=== PATIENT | male | born 1995 | race Caucasian/White ===

== ENCOUNTER → 2024-02-07 | Emergency (ER) | payer SELFPAY ==
[~2024-02-07] MED LIST: DIPHENHYDRAMINE 50 MG/ML VIAL ONE; FAMOTIDINE 20 MG/2 ML VIAL IV ONE; KETOROLAC 30 MG/ML INJ ONE; METHYLPREDNISOLONE 125 MG INJ ONE; PROMETHAZINE 25 MG TABLET ONE; TRAMADOL HCL 50 MG TAB ONE
--- NOTE | 2024-02-07 06:10 | EDPHYS ---
Physician Documentation [facility] Name: Wayne Lawson Age: 28 yrs Sex: Male : 1995 Arrival Date: 02/07/2024 Time: 05:41 Bed 6 Private MD: ED Physician Jose Goff HPI: 02/06 06:01 This 28 yrs old Male presents to ER via Ambulatory with complaints of sp4 Toothache, Lips Swelling. 06:01 28-year-old male presents with upper lip swelling after application of Orajel yesterday sp4 evening. Patient applied Orajel to the front upper gingiva, and this has caused upper lip swelling just inferior to the nose the area over the philtrum. No difficulty breathing . . Historical: - Allergies: 05:51 Orajel 3X Toothache-Gum; km8 - Home Meds: 05:51 None [Active]; km8 - PMHx: 05:51 None; km8 - PSHx: 05:51 None; km8 - Immunization history:: Client reports having NOT received the Covid vaccine. Flu vaccine is not up to date. - Social history:: Smoking status: Reported history of juuling and/or vaping. Patient/guardian denies using alcohol, street drugs. - Family history:: not pertinent. ROS: 06:01 Constitutional: Negative for fever, chills, and weight loss, Eyes: Negative for injury, sp4 pain, redness, and discharge, ENT: Positive upper lip swelling positive upper incisor dental pain Neck: Negative for injury, pain, and swelling, Cardiovascular: Negative for chest pain, palpitations, and edema, 06:01 All other systems are negative, Exam: 06:01 Constitutional: This is a well developed, well nourished patient who is awake, alert, sp4 and in no acute distress. Head/Face: Normocephalic, atraumatic. Eyes: Pupils equal round and reactive to light, extra-ocular motions intact. Lids and lashes normal. Conjunctiva and sclera are not injected. Cornea within normal limits. Periorbital areas with no swelling, redness, or edema. ENT: Nares patent. No nasal discharge, no septal abnormalities noted. Tympanic membranes are normal and external auditory canals are clear. Oropharynx with no redness, swelling, or masses, exudates, or evidence of obstruction, uvula midline. Mucous membranes moist. Positive upper lip swelling , also swelling of philtrum inferior to the nose Neck: Trachea midline, no thyromegaly or masses palpated, and no cervical lymphadenopathy. Supple, full range of motion without nuchal rigidity, or vertebral point tenderness. Chest/axilla: Normal chest wall appearance and motion. Nontender with no deformity. No lesions are appreciated. Cardiovascular: Regular rate and rhythm with a normal S1 and S2. No gallops, murmurs, or rubs. Normal PMI, no JVD. No pulse deficits. Respiratory: Lungs have equal breath sounds bilaterally, clear to auscultation and percussion. No rales, rhonchi or wheezes noted. No increased work of breathing, no retractions or nasal flaring. Abdomen/GI: Soft, with normal bowel sounds. No distension or tympany. No guarding or rebound. No evidence of tenderness throughout. Back: No spinal tenderness. No costovertebral tenderness. Skin: Warm, dry with normal turgor. Normal color with no rashes, no lesions, and no evidence of cellulitis. MS/ Extremity: Pulses equal, no cyanosis. Neurovascular intact. Full, normal range of motion. Neuro: Awake and alert, GCS 15, oriented to person, place, time, and situation. Cranial nerves II-XII grossly intact. Motor strength 5/5 in all extremities. Sensory grossly intact. Psych: Awake, alert, with orientation to person, place and time. Behavior, mood, and affect are within normal limits Vital Signs: 05:48 BP 153 / 101; Pulse 83; Resp 16; Temp 99.1(TE); Pulse Ox 97% on R/A; Weight 86.18 kg [facility] (R); Height 5 ft. 7 in. (R); Pain 6/10; 06:10 BP 145 / 94; Pulse 88; Resp 16; Pulse Ox 100% on R/A; [facility] 06:28 BP 145 / 94; Pulse 88; Resp 17 S; Pulse Ox 100% ; ha1 05:48 Body Mass Index 29.76 (86.18 kg, 170.18 cm) [facility] 05:48 Pain Scale: Adult [facility] Alissa Coma Score: 05:54 Eye Response: spontaneous(4). Motor Response: obeys commands(6). Verbal Response: km8 oriented(5). Total: 15. MDM: 06:07 Differential diagnosis: dental caries, gingivitis, dental abscess, aphthous ulcers, sp4 gingivostomatitis. Data reviewed: vital signs, nurses notes. ED course: Patient seems to have a localized allergic reaction to the oral gel with upper lip swelling and swelling of the tissues inferior to the nose. Patient will be prescribed prednisone once a day for 5 days also as needed tramadol for dental pain also as needed Benadryl. Will advise visit with dentist/aquatic scientist for root canal of the upper incisor #8 that seems to be the source of the pain. . 06:09 Patient medically screened. sp4 Administered Medications: 06:00 Drug: Famotidine IVP 20 mg IVP once; dilute with 10 mL 0.9% NaCl; give over 2 minutes ha1 Route: IVP; Site: right antecubital; 06:31 Follow up: Response: No adverse reaction km8 06:02 Drug: diphenhydrAMINE IVP 50 mg IVP once Route: IVP; Site: right antecubital; ha1 06:31 Follow up: Response: No adverse reaction km8 06:04 Drug: MethylPrednisoLONE IVP 125 mg IVP once Route: IVP; Site: right antecubital; ha1 06:31 Follow up: Response: No adverse reaction km8 06:07 Drug: Ketorolac IVP 30 mg IVP once Route: IVP; Site: right antecubital; ha1 06:32 Follow up: Response: No adverse reaction; Pain is decreased km8 06:11 Drug: traMADol PO 100 mg PO once Route: PO; km8 06:32 Follow up: Response: No adverse reaction; Pain is decreased km8 06:11 Drug: Promethazine PO 25 mg PO once Route: PO; km8 06:32 Follow up: Response: No adverse reaction km8 Disposition Summary: 02/07/24 06:09 Discharge Ordered Notes: Location: Home sp4 Problem: new sp4 Symptoms: have improved sp4 Condition: Stable 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 Diagnosis - Dental alveolar anomalies sp4 - Acute dental pain, acute localized allergic reaction, allergic reaction to oraGel sp4 Followup: sp4 - With: Private Physician - When: 7 - 10 days - Reason: Recheck today's complaints Discharge Instructions: - Discharge Summary Sheet sp4 - Dental Pain, [id number] sp4 Forms: - Patient Portal Instructions sp4 Prescriptions: - diclofenac sodium 50 mg Oral tablet, delayed release (enteric coated) - take 2 tablet ORAL route every 12 hours PRN pain; 30 tablet; Refills: 0, sp4 Product Selection Permitted - diphenhydramine HCl 25 mg Oral Tablet,disintegrating - take 1 tablet ORAL route every 8 hours PRN swelling and redness; 60 tablet; sp4 Refills: 0, Product Selection Permitted - Tramadol 50 mg Oral tablet - take 1 tablet ORAL route every 8 hours as needed; 20 tablet; Refills: 0, sp4 Product Selection Permitted - Prednisone 20 mg Oral Tablet - take 2 tablets ORAL route once daily for 5 days; 10 tablet; Refills: 0, Product sp4 Selection Permitted Signatures: Kym Gomes RN RN lg3 Asiya Aponte RN RN ha1 Jose Goff MD MD sp4 Korina Flanagan RN RN km8
--- NOTE | 2024-02-07 06:10 | ER ---
Nurse's Notes [facility] Name: Wayne Lawson Age: 28 yrs Sex: Male : 1995 Arrival Date: 02/07/2024 Time: 05:41 Bed 6 Private MD: Diagnosis: Dental alveolar anomalies;Acute dental pain, acute localized allergic reaction, allergic reaction to oraGel Presentation: 02/06 05:48 Chief complaint: Patient states: top front lip swelling starting today at 0300; denies km8 SOB, throat swelling, or CP; pt did report using Orajel for tooth pain at 1500 yesterday and states "I had a small reaction using Orajel before but not this bad.". Coronavirus screen: Client denies travel out of the [place] in the last 14 days. Ebola Screen: No symptoms or risks identified at this time. Initial Sepsis Screen: Does the patient meet any 2 criteria? No. Patient's initial sepsis screen is negative. Does the patient have a suspected source of infection? No. Patient's initial sepsis screen is negative. Risk Assessment: Do you want to hurt yourself or someone else? Patient reports no desire to harm self or others. Onset of symptoms was February 07, 2024 at 03:00. 05:48 Method Of Arrival: Ambulatory km8 05:48 Acuity: PILAR 3 km8 Triage Assessment: 05:52 General: Appears in no apparent distress. comfortable, Behavior is calm, cooperative, km8 appropriate for age. Pain: Complains of pain in 2 front teeth Pain currently is 6 out of 10 on a pain scale. EENT: top lip swelling. Reports pain in 2 top front teeth Denies difficulty swallowing. Neuro: Level of Consciousness is awake, alert, obeys commands, Oriented to person, place, time, situation. Cardiovascular: Denies chest pain, shortness of breath, Patient's skin is warm and dry. Respiratory: Airway is patent Respiratory effort is even, unlabored, Respiratory pattern is regular, symmetrical. GI: Reports nausea. : No signs and/or symptoms were reported regarding the genitourinary system. Derm: No signs and/or symptoms reported regarding the dermatologic system. Skin is intact, is healthy with good turgor, Skin is dry, Skin is pink, warm \\T\\ dry. normal, Skin temperature is warm. Musculoskeletal: Range of motion: intact in all extremities, Swelling present in upper lip. Historical: - Allergies: 05:51 Orajel 3X Toothache-Gum; km8 - Home Meds: 05:51 None [Active]; km8 - PMHx: 05:51 None; 8 - PSHx: 05:51 None; km8 - Immunization history:: Client reports having NOT received the Covid vaccine. Flu vaccine is not up to date. - Social history:: Smoking status: Reported history of juuling and/or vaping. Patient/guardian denies using alcohol, street drugs. - Family history:: not pertinent. Screenin:54 [facility] ED Fall Risk Assessment (Adult) History of falling in the last 3 months, km8 including since admission No falls in past 3 months (0 pts) Confusion or Disorientation No (0 pts) Intoxicated or Sedated No (0 pts) Impaired Gait No (0 pts) Mobility Assist Device Used No (0 pt) Altered Elimination No (0 pt) Score/Fall Risk Level 0 - 2 = Low Risk Oriented to surroundings, Maintained a safe environment, Educated pt \\T\\ family on fall prevention, incl call for assistance when getting out of bed, Assessed \\T\\ reinforced patient's understanding of fall precautions. Abuse screen: Denies threats or abuse. Denies injuries from another. Nutritional screening: No deficits noted. Tuberculosis screening: No symptoms or risk factors identified. Assessment: 05:54 Reassessment: see triage assessment/notes. [facility] 06:28 Reassessment: Patient and/or family updated on plan of care and expected duration. Pain ha1 level reassessed. Patient is alert, oriented x 3, equal unlabored respirations, skin warm/dry/pink. Patient denies pain at this time. Patient states feeling better. Patient states symptoms have improved. Vital Signs: 05:48 BP 153 / 101; Pulse 83; Resp 16; Temp 99.1(TE); Pulse Ox 97% on R/A; Weight 86.18 kg km8 (R); Height 5 ft. 7 in. (R); Pain 6/10; 06:10 BP 145 / 94; Pulse 88; Resp 16; Pulse Ox 100% on R/A; km8 06:28 BP 145 / 94; Pulse 88; Resp 17 S; Pulse Ox 100% ; ha1 05:48 Body Mass Index 29.76 (86.18 kg, 170.18 cm) km8 05:48 Pain Scale: Adult km8 [place] Coma Score: 05:54 Eye Response: spontaneous(4). Motor Response: obeys commands(6). Verbal Response: km8 oriented(5). Total: 15. ED Course: 05:42 Patient arrived in ED. lg3 05:48 Korina Flanagan RN is Primary Nurse. km8 05:49 Jose Goff MD is Attending Physician. sp4 05:51 Triage completed. km8 05:51 Arm band placed on right wrist. km8 05:54 Patient has correct armband on for positive identification. Bed in low position. Call km8 light in reach. Side rails up X 1. Pulse ox on. NIBP on. 05:54 Patient maintains SpO2 saturation greater than 95% on room air. km8 05:55 Inserted saline lock: 22 gauge in right antecubital area, using aseptic technique. ha1 06:29 No provider procedures requiring assistance completed. IV discontinued, intact, ha1 bleeding controlled, No redness/swelling at site. Pressure dressing applied. 06:30 Provided Education on: medication administration . ha1 Administered Medications: 06:00 Drug: Famotidine IVP 20 mg IVP once; dilute with 10 mL 0.9% NaCl; give over 2 minutes ha1 Route: IVP; Site: right antecubital; 06:31 Follow up: Response: No adverse reaction km8 06:02 Drug: diphenhydrAMINE IVP 50 mg IVP once Route: IVP; Site: right antecubital; ha1 06:31 Follow up: Response: No adverse reaction km8 06:04 Drug: MethylPrednisoLONE IVP 125 mg IVP once Route: IVP; Site: right antecubital; ha1 06:31 Follow up: Response: No adverse reaction km8 06:07 Drug: Ketorolac IVP 30 mg IVP once Route: IVP; Site: right antecubital; ha1 06:32 Follow up: Response: No adverse reaction; Pain is decreased km8 06:11 Drug: traMADol PO 100 mg PO once Route: PO; km8 06:32 Follow up: Response: No adverse reaction; Pain is decreased km8 06:11 Drug: Promethazine PO 25 mg PO once Route: PO; km8 06:32 Follow up: Response: No adverse reaction km8 Medication: 06:30 VIS not applicable for this client. ha1 Outcome: 06:09 Discharge ordered by . sp4 06:29 Discharged to home ambulatory, with family, ha1 06:29 Condition: stable 06:29 Discharge instructions given to patient, family, Instructed on discharge instructions, follow up and referral plans. medication usage, Demonstrated understanding of instructions, follow-up care, medications, Prescriptions given X 4, 06:33 Patient left the ED. km8 Signatures: Kym Gomes RN RN lg3 Asiya Aponte RN RN ha1 Jose Goff MD MD sp4 Korina Flanagan RN RN km8 Corrections: (The following items were deleted from the chart) 06:08 06:07 Famotidine IVP 20 mg IVP in right antecubital ha1 ha1
[2024-02-07 06:49] VITALS: BP 145/94; TEMP 99.1; O2SAT 100
== END ==
LOC: ER 05:41
DX: M26.79 Other specified alveolar anomalies (principal); Z88.8 Allergy status to other drugs, medicaments and biological substances
CPT/HCPCS: 96374; 96375; 99285; J1200; J2930; Q0169